=== PATIENT | male | born 1965 | race American Indian/Alaskan Native ===

== ENCOUNTER 2020-08-29 02:21 | Inpatient (IN) | payer OTHER, SELFPAY ==
[2020-08-29] MEDS ORDERED: methylPREDNISolone Sod Succinate 125 MG/2 ML INJ IV ONE (04:00)
[2020-08-29] MEDS ORDERED: ALBUTEROL 2.5 MG/3 ML NEBU IH ONE (04:00)
[2020-08-29] MEDS ORDERED: IPRATROPIUM 0.02% NEBU 2.5 ML IH ONE (04:00)
[2020-08-29] MEDS ORDERED: SODIUM CHLORIDE 0.9% 1000 ML 1,000 ML IV ONE (04:00)
[2020-08-29] MEDS ORDERED: MAGNESIUM SULFATE 2 GM/50 ML BAG IV ONE (04:00)
--- NOTE | 2020-08-29 04:07 | Emergency Department Report ---
ED Asthma HPI - General Chief Complaint: Adult Asthma Stated Complaint: ASTHMA PUI?: No Time Seen by Provider: 08/29/20 04:00 Source: patient Mode of arrival: Ambulatory Limitations: No Limitations - History of Present Illness Initial Comments: CC: wheezing, shortness of breath HPI: THis is a 53 yo male with hx of asthma and allergic rhinitis who present with shortness of breath, wheezing and cough. Symptoms began a few weeks prior. Has worsened over the past day. He does not have any asthma medication. In triage, oxygenation saturation 91. Patient was admitted to this hospital in November 2019 for acute respiratory failure due to COVID-19 pneumonia. Mr. Jeffries has had several admissions. Most recently at [facility] June for asthma. Patient has been unable to establish outpatient medical care due to lack of ins urance. He has been maintained in outpatient setting successfully in the past. However he is unable to afford medication and doctor visits [id number]. Patient denies intubation history. MD Complaint: "asthma attack", shortness of breath, wheezing -: Gradual, week(s) (3 weeks) Asthma History: history of prior ED visit, other (History of hospitalization) Severity: severe Context: ran out of meds Associated Symptoms: dry cough Treatments Prior to Arrival: other (none) - Related Data Current Asthma Therapy: none Previous Rx's Medication Instructions Recorded Last Taken Type Albuterol Mdi (or & Nicu Only) 2 puff IH Q3HRT PRN #1 inha 12/01/19 Unknown Rx [ProAir HFA Inhaler] Omeprazole Magnesium [PriLOSEC Otc] 20 mg PO QDAY #30 12/01/19 Unknown Rx Zinc Sulfate 220 mg PO QDAY #30 capsule 12/01/19 Unknown Rx dexAMETHasone [Decadron] 6 mg PO DAILY #7 tablet 12/01/19 Unknown Rx guaiFENesin/CODEINE [Robitussin AC] 7.5 ml PO Q4H PRN #180 oral.liqd 12/01/19 Unknown Rx oxyCODONE /ACETAMINOPHEN [Percocet 1 tab PO Q6H PRN #14 tablet 12/01/19 Unknown Rx 5/325 mg] Albuterol Mdi (or & Nicu Only) 2 puff IH QID PRN #8.5 gram 08/29/20 Unknown Rx [ProAir HFA Inhaler] Cetirizine HCl [Zyrtec 10mg tab] 10 mg PO DAILY 30 Days #30 tablet 08/29/20 Unknown Rx Prednisone [predniSONE 10 mg 10 mg PO .TAPER #1 tab.ds.pk 08/29/20 Unknown Rx (6-Day Pack, 21 Tabs)] Allergies Allergy/AdvReac Type Severity Reaction Status Date / Time No Known Allergies Allergy Verified 11/26/19 16:06 ED Review of Systems ROS: Stated complaint: ASTHMA Other details as noted in HPI Comment: All other systems reviewed and negative Constitutional: denies: fever, malaise Respiratory: cough, shortness of breath, wheezing Cardiovascular: denies: chest pain Gastrointestinal: denies: abdominal pain, nausea Genitourinary: denies: urgency Neurological: denies: headache ED Past Medical Hx - Past Medical History Previous Medical History?: Yes Hx Asthma: Yes Hx HIV: No - Surgical History Past Surgical History?: No Hx Pacemaker: No Hx Internal Defibrillator: No - Social History Smoking Status: Never Smoker - Medications Home Medications: Home Medications Medication Instructions Recorded Confirmed Last Taken Type Albuterol Mdi (or & Nicu Only) 2 puff IH Q3HRT PRN #1 inha 12/01/19 Unknown Rx [ProAir HFA Inhaler] Omeprazole Magnesium [PriLOSEC Otc] 20 mg PO QDAY #30 12/01/19 Unknown Rx Zinc Sulfate 220 mg PO QDAY #30 capsule 12/01/19 Unknown Rx dexAMETHasone [Decadron] 6 mg PO DAILY #7 tablet 12/01/19 Unknown Rx guaiFENesin/CODEINE [Robitussin AC] 7.5 ml PO Q4H PRN #180 oral.liqd 12/01/19 Unknown Rx oxyCODONE /ACETAMINOPHEN [Percocet 1 tab PO Q6H PRN #14 tablet 12/01/19 Unknown Rx 5/325 mg] Albuterol Mdi (or & Nicu Only) 2 puff IH QID PRN #8.5 gram 08/29/20 Unknown Rx [ProAir HFA Inhaler] Cetirizine HCl [Zyrtec 10mg tab] 10 mg PO DAILY 30 Days #30 tablet 08/29/20 Unknown Rx Prednisone [predniSONE 10 mg 10 mg PO .TAPER #1 tab.ds.pk 08/29/20 Unknown Rx (6-Day Pack, 21 Tabs)] ED Physical Exam - General Limitations: No Limitations General appearance: alert, in distress, other (Speaking 2-3 word sentences with much effort) - Head Head exam: Present: atraumatic, normocephalic - Eye Eye exam: Present: normal appearance - ENT ENT exam: Present: mucous membranes moist - Neck Neck exam: Present: normal inspection, full ROM - Respiratory Respiratory exam: Present: respiratory distress, wheezes, accessory muscle use, prolonged expiratory, other (Inspiratory expiratory wheezing, frequent coughing). Absent: rales, rhonchi, stridor - Cardiovascular Cardiovascular Exam: Present: regular rate, normal rhythm, normal heart sounds. Absent: systolic murmur, diastolic murmur, rubs, gallop - GI/Abdominal GI/Abdominal exam: Present: soft, normal bowel sounds. Absent: distended, tenderness, guarding, rebound - Rectal Rectal exam: Present: deferred - Extremities Exam Extremities exam: Present: normal inspection - Neurological Exam Neurological exam: Present: alert, oriented X3 - Psychiatric Psychiatric exam: Present: normal affect, anxious - Skin Skin exam: Present: warm, dry, intact, normal color. Absent: rash ED Course Vital Signs 08/29/20 08/29/20 08/29/20 02:34 04:06 04:10 Temperature 97.9 F Pulse Rate 96 H Pulse Rate [ 95 H Bilateral] Respiratory 20 22 Rate Respiratory 20 Rate [Bilateral ] Blood Pressure 162/99 Blood Pressure [Left] O2 Sat by Pulse 92 91 Oximetry 08/29/20 05:40 Temperature Pulse Rate 95 H Pulse Rate [ Bilateral] Respiratory 24 Rate Respiratory Rate [Bilateral ] Blood Pressure Blood Pressure 152/79 [Left] O2 Sat by Pulse 94 Oximetry - Reevaluation(s) Reevaluation #1: 08/29/20 05:02 Patient's oxygen saturation is 90% while receiving continuous nebulizer therapy. He is much more comfortable. He has expiratory wheezing. He is speaking full word sentences. ED Medical Decision Making - Lab Data Result diagrams: 08/29/20 04:32 08/29/20 04:32 - Radiology Data Radiology results: report reviewed, image reviewed AP chest 1 view my personal interpretation alveolar fullness no edema no lobar infiltrate no pneumothorax mild cardiomegaly - Medical Decision Making Acute asthma exacerbation. Patient had significant respiratory distress upon arrival. He is improving with treatment in the emergency department. However he still has work of breathing. Patient will benefit and require hospitalization. Patient is admitted to the hospital service in fair condition. CBC chemistry within normal limits, no acute process seen on chest radiograph Critical Care Time: Yes Critical care time in (mins) excluding proc time.: 40 Critical care attestation.: If time is entered above; I have spent that time in minutes in the direct care of this critically ill patient, excluding procedure time. 40 minutes of critical care time excluding procedures were used in the care of the patient. I came immediately to the bedside upon patient's arrival to treatment room. I discussed treatment plan with the nursing team members. I spoke directly with respiratory therapist to coordinate treatment. I reviewed electronic record. I was concerned for imminent airway compromise considering work of breathing upon presentation. Patient required multiple interventions and reassessments. ED Disposition Clinical Impression: Status asthmaticus, Acute respiratory failure with hypoxia Disposition: OP ADMIT IP TO THIS HOSP Is pt being admited?: Yes Does the pt Need Aspirin: No Condition: Stable
[2020-08-29 05:10] LABS: Hematocrit 44.6 % (35.5-45.6); Hemoglobin 15.2 gm/dl (11.8-15.2); Mean Corpuscular HGB Conc 34 % (32-34); Mean Corpuscular Volume 92 fl (84-94); Platelet Count 273 K/mm3 (140-440); Red Blood Count 4.85 M/mm3 (3.65-5.03); Red Cell Distribution Width 13.3 % (13.2-15.2)
[2020-08-29 05:21] LABS: BUN/Creatinine Ratio 14; Blood Urea Nitrogen 13 mg/dL (9-20); Calcium 9.2 mg/dL (8.4-10.2); Hemolysis Index 4
[2020-08-29] MEDS ORDERED: ACETAMINOPHEN 325 MG TAB PO PRN (05:26)
[2020-08-29] MEDS ORDERED: ONDANSETRON 4 MG/2 ML INJ IV PRN (05:26)
[2020-08-29] MEDS ORDERED: MORPHINE 2 MG/1 ML INJ IV PRN (05:26)
[2020-08-29] MEDS ORDERED: MAGNESIUM HYDROXIDE (MOM) ORAL LIQD UDC PO PRN (05:26)
--- NOTE | 2020-08-29 05:39 | History and Physical Report ---
History of Present Illness Date of examination: 08/29/20 Date of admission: 08/29/20 05:13 Chief complaint: Cough Shortness of breath History of present illness: [id number]-[place] male with known history of asthma and allergic rhinitis presenting to the emergency room today complaining of cough, shortness of breath and wheezing. Symptoms were said to have started few weeks ago but worsened over the past few days. Patient was admitted in this hospital sometime in November 2019 for respiratory failure due to COVID-19 pneumonia. He denies any fever or chills, no chest pain, no headache or dizziness, no diaphoresis. Patient denies being exposed to any toxic fumes, denies any recent travel, denies any sick contacts. He however indicates that he just started a new job and has been on his legs most of the time. Upon arrival in the emergency room he had oxygen saturation of about 91%. Patient has had multiple hospital admissions for asthma exacerbation and his most recent admission was at [facility] in June for asthma. He has not been able to establish with a primary care physician secondary to his insurance issues. He is therefore not on any medications at home. He has had multiple rounds of nebulizing treatments and steroids in the emergency room and he still continues to to wheeze. Work-up in the emergency room today has been unremarkable. Patient has been admitted for status asthmaticus.. Past History Past Medical History: other (Asthma) Past Surgical History: No surgical history Social history: no significant social history Medications and Allergies Allergies Allergy/AdvReac Type Severity Reaction Status Date / Time No Known Allergies Allergy Verified 11/26/19 16:06 Home Medications Medication Instructions Recorded Confirmed Last Taken Type Albuterol Mdi (or & Nicu Only) 2 puff IH Q3HRT PRN #1 inha 12/01/19 Unknown Rx [ProAir HFA Inhaler] Omeprazole Magnesium [PriLOSEC Otc] 20 mg PO QDAY #30 12/01/19 Unknown Rx Zinc Sulfate 220 mg PO QDAY #30 capsule 12/01/19 Unknown Rx dexAMETHasone [Decadron] 6 mg PO DAILY #7 tablet 12/01/19 Unknown Rx guaiFENesin/CODEINE [Robitussin AC] 7.5 ml PO Q4H PRN #180 oral.liqd 12/01/19 Unknown Rx oxyCODONE /ACETAMINOPHEN [Percocet 1 tab PO Q6H PRN #14 tablet 12/01/19 Unknown Rx 5/325 mg] Albuterol Mdi (or & Nicu Only) 2 puff IH QID PRN #8.5 gram 08/29/20 Unknown Rx [ProAir HFA Inhaler] Cetirizine HCl [Zyrtec 10mg tab] 10 mg PO DAILY 30 Days #30 tablet 08/29/20 Unknown Rx Prednisone [predniSONE 10 mg 10 mg PO .TAPER #1 tab.ds.pk 08/29/20 Unknown Rx (6-Day Pack, 21 Tabs)] Active Meds: Active Medications Acetaminophen (Acetaminophen 325 Mg Tab) 650 mg PO Q4H PRN PRN Reason: Pain MILD(1-3)/Fever >100.5/FIGUEREDO Albuterol/Ipratropium (Ipratropium/Albuterol Sulfate 3 Ml Ampul.Neb) 1 ampul IH Q6HRT ROSA Heparin Sodium (Porcine) (Heparin 5,000 Unit/1 Ml Vial) 5,000 unit SUB-Q Q8HR ROSA Magnesium Hydroxide (Magnesium Hydroxide (Mom) Oral Liqd Udc) 30 ml PO Q4H PRN PRN Reason: Constipation Methylprednisolone Sodium Succinate (Methylprednisolone Sod Succinate 40 Mg/1 Ml Inj) 40 mg IV Q8HR ROSA Morphine Sulfate (Morphine 2 Mg/1 Ml Inj) 2 mg IV Q4H PRN PRN Reason: Pain, Moderate (4-6) Ondansetron HCl (Ondansetron 4 Mg/2 Ml Inj) 4 mg IV Q8H PRN PRN Reason: Nausea And Vomiting Sodium Chloride (Sodium Chloride 0.9% 10 Ml Flush Syringe) 10 ml IV BID ROSA Sodium Chloride (Sodium Chloride 0.9% 10 Ml Flush Syringe) 10 ml IV PRN PRN PRN Reason: LINE FLUSH Review of Systems Constitutional: no fever, no chills Ears, nose, mouth and throat: no nasal congestion, no sore throat Cardiovascular: no chest pain, no palpitations Respiratory: cough, shortness of breath, wheezing Gastrointestinal: no abdominal pain, no nausea, no vomiting, no diarrhea Genitourinary Male: no dysuria, no hematuria, no flank pain, no nocturia Musculoskeletal: no neck pain, no low back pain Integumentary: no rash, no pruritis Neurological: no headaches, no confusion Psychiatric: no anxiety, no depression Endocrine: no polyphagia, no polydipsia, no polyuria, no nocturia Exam - Constitutional Vitals: Temp Pulse Resp BP Pulse Ox 97.9 F 92 H 28 H 162/99 91 08/29/20 02:34 08/29/20 04:10 08/29/20 04:10 08/29/20 02:34 08/29/20 04:06 General appearance: Present: no acute distress, well-nourished - EENT Eyes: Present: PERRL, EOM intact. Absent: scleral icterus ENT: hearing intact, clear oral mucosa, dentition normal - Neck Neck: Present: supple, normal ROM - Respiratory Respiratory effort: labored Respiratory: bilateral: wheezing - Cardiovascular Rhythm: regular Heart Sounds: Present: S1 & S2. Absent: gallop, systolic murmur, diastolic murmur, rub, click - Extremities Extremities: no ischemia, pulses intact, pulses symmetrical, normal temperature, normal color, Full ROM Extremity abnormal: edema (Trace bilateral nonpitting ankle edema) Peripheral Pulses: within normal limits - Abdominal General gastrointestinal: Present: soft, non-tender, non-distended. Absent: mass - Integumentary Integumentary: Present: clear, warm, dry. Absent: rash - Musculoskeletal Musculoskeletal: strength equal bilaterally - Psychiatric Psychiatric: appropriate mood/affect, intact judgment & insight, memory intact, cooperative - Neurologic Neurologic: CNII-XII intact, no focal deficits, moves all extremities Results - Labs CBC & Chem 7: 08/29/20 04:32 08/29/20 04:32 Labs: Abnormal lab results 08/29/20 Range/Units 04:32 Glucose 112 H (75-100) mg/dL Assessment and Plan - Patient Problems (1) Status asthmaticus Current Visit: Yes Status: Acute Plan to address problem: Patient placed on nebulizing treatments and IV steroids. Patient has not been able to follow-up with any primary care physician secondary to insurance issues. We will place consult to pulmonology for evaluation. (2) Acute respiratory failure with hypoxia Current Visit: Yes Status: Acute Plan to address problem: Secondary to the asthma exacerbation. Patient will be placed on oxygen and keep O2 saturation greater or equal to 94%. (3) DVT prophylaxis Current Visit: No Status: Acute Plan to address problem: Patient placed on subcutaneous heparin. (4) Full code status Current Visit: No Status: Acute Plan to address problem: Patient is full code.
--- NOTE | 2020-08-29 05:47 | XRay Report ---
CHEST 1 VIEW INDICATION: dyspnea asthma COMPARISON: 11/26/2019 FINDINGS: Support devices: None Heart: Normal and unchanged Lungs/Pleura: Congestive heart is unchanged and thought to be due to a large hernia. No acute pulmonary disease. No pleural fluid. IMPRESSION: 1. No significant change. Signer Name: Steven Weinstein MD Signed: 08/29/2020 5:42 AM Workstation Name: [id number]
[2020-08-29] MEDS: HEPARIN 5,000 UNIT/1 ML VIAL SUB-Q SCH ×3 (06:37→21:22)
[2020-08-29 07:09] LABS: Total Cells Counted 100
[2020-08-29 07:10] LABS: Platelet Estimate Consistent w Auto; RBC Morphology Normal
[2020-08-29] MEDS: IPRATROPIUM/ALBUTEROL SULFATE 3 ML AMPUL.NEB IH SCH ×3 (07:14→21:15)
[2020-08-29] MEDS ORDERED: ALBUTEROL 2.5 MG/3 ML NEBU IH PRN (10:16)
--- NOTE | 2020-08-29 15:09 | Event Note ---
Date: 08/29/20 Patient seen and examined, this is the second visit after midnight. 54-year-old male who does not have any PCP presented to the hospital with acute asthma exacerbation Continue current plan and management as dictated in the H&P, follow clinically If any improves clinically possible discharge tomorrow
[2020-08-29] MEDS: methylPREDNISolone Sod Succinate 40 MG/1 ML INJ IV SCH ×2 (15:38→21:22)
[2020-08-30] MEDS: IPRATROPIUM/ALBUTEROL SULFATE 3 ML AMPUL.NEB IH SCH ×4 (05:32→21:14)
[2020-08-30] MEDS: methylPREDNISolone Sod Succinate 40 MG/1 ML INJ IV SCH ×3 (06:00→21:44)
[2020-08-30] MEDS: HEPARIN 5,000 UNIT/1 ML VIAL SUB-Q SCH ×3 (06:01→21:44)
[2020-08-30 06:30] LABS: Hematocrit 42.1 % (35.5-45.6); Hemoglobin 14.4 gm/dl (11.8-15.2); Lymphocytes % (Auto) 9.5 % (13.4-35.0); Mean Corpuscular HGB Conc 34 % (32-34); Mean Corpuscular Volume 93 fl (84-94); Monocytes # (Auto) 0.5 K/mm3 (0.0-0.8); Monocytes % (Auto) 4.4 % (0.0-7.3); Platelet Count 273 K/mm3 (140-440); Red Blood Count 4.52 M/mm3 (3.65-5.03); Red Cell Distribution Width 13.4 % (13.2-15.2)
[2020-08-30 06:35] LABS: INR 1.04 (0.87-1.13)
[2020-08-30 06:50] LABS: BUN/Creatinine Ratio 13; Blood Urea Nitrogen 12 mg/dL (9-20); Calcium 9.5 mg/dL (8.4-10.2); Hemolysis Index 6
[2020-08-30] MEDS ORDERED: SINGULAIR 10 MG PO SCH (10:00)
[2020-08-30] MEDS ORDERED: amLODIPine 5 MG TAB PO SCH (10:00)
[2020-08-30] MEDS: guaiFENesin ER 600 MG TAB PO SCH ×2 (10:44→21:44)
[2020-08-30] MEDS ORDERED: ALBUTEROL 8.5 GM MDI INHALATION IH PRN (12:08)
[2020-08-30] MEDS ORDERED: guaiFENesin/CODEINE 100-10MG ORAL LIQD 5 ML PO PRN (13:00)
[2020-08-30] MEDS: amLODIPine 10 MG TAB PO SCH (15:02)
[2020-08-30] MEDS: PANTOPRAZOLE 20 MG TAB PO SCH (15:02)
--- NOTE | 2020-08-30 17:05 | Discharge Summary ---
Providers - Providers Date of Admission: 08/29/20 05:13 Date of discharge: 08/31/20 Attending physician: PHUONG DAVE Primary care physician: ANA RANDHAWA MD Hospitalization Condition: Stable Hospital course: [id number]-[place]ales[place] male with known history of asthma and allergic rhinitis presented to the emergency room complaining of cough, shortness of breath and wheezing for last few days. Patient was admitted in this hospital sometime in November 2019 for respiratory failure due to COVID-19 pneumonia. Upon arrival in the emergency room he had oxygen saturation of about 91%. He has not been able to establish with a primary care physician secondary to his insurance issues. He is therefore not on any medications at home. He had multiple rounds of nebulizing treatments and steroids in the emergency room and he still continued to wheeze. Patient was admitted to medical floor with scheduled nebs, iv steroids and supplemental O2 to keep O2 sat at 94%. CXR showed no infiltrates. Covid test was negative. Patients symptom improved with medical management. Patient was then discharged home in stable condition with outpt f/u. Disposition: TO HOME OR SELFCARE Final Discharge Diagnosis (Prints w/discharge instructions): Status asthmaticus, acute respiratory failure with hypoxia, morbid obesity, HTN, noncompliance Time spent for discharge: 34 minutes Core Measure Documentation - Palliative Care Palliative Care/ Comfort Measures: Not Applicable - Core Measures Any of the following diagnoses?: none Exam - Constitutional Vitals: Temp Pulse Resp BP Pulse Ox 98.4 F 86 18 139/80 97 08/30/20 11:48 08/30/20 15:02 08/30/20 14:25 08/30/20 15:02 08/30/20 11:48 Plan Activity: advance as tolerated Weight Bearing Status: Weight Bear as Tolerated Diet: low fat, low salt Follow up with: ANA RANDHAWA MD [Primary Care Provider] - 3-5 Days ANABELLA VICENTE MD [Staff Physician] - 7 Days JAYCEE RUELAS MD [Staff Physician] - 7 Days Prescriptions: Amlodipine Besylate [Norvasc] 10 mg PO DAILY #90 Prednisone [predniSONE 10 mg (6-Day Pack, 21 Tabs)] 10 mg PO .TAPER #1 tab.ds.pk Omeprazole Magnesium [PriLOSEC Otc] 20 mg PO QDAY #30 Albuterol Mdi (or & Nicu Only) [ProAir HFA Inhaler] 2 puff IH QID PRN #8.5 gram PRN Reason: Shortness Of Breath Singulair 10 mg PO DAILY #30 Azithromycin [Zithromax Z-ERWIN] 250 mg PO DAILY #6 tab
--- NOTE | 2020-08-30 17:37 | Event Note ---
Date: 08/30/20 Ambulatory oxygen drops to 89% and patient started to wheeze on ambulation We will hold the discharge for tonight and will reassess him tomorrow Continue current management and plan
[2020-08-30] MEDS ORDERED: MONTELUKAST 10 MG TAB PO SCH (22:00)
[2020-08-31] MEDS: IPRATROPIUM/ALBUTEROL SULFATE 3 ML AMPUL.NEB IH SCH ×3 (05:14→14:10)
[2020-08-31] MEDS: HEPARIN 5,000 UNIT/1 ML VIAL SUB-Q SCH (06:55)
[2020-08-31] MEDS: methylPREDNISolone Sod Succinate 40 MG/1 ML INJ IV SCH (06:55)
[2020-08-31] MEDS ORDERED: NON-FORMULARY EACH (Omeprazole Magnesium [Prilosec Otc] 20 MG Tablet.Dr) PO SCH (10:00)
[2020-08-31] MEDS ORDERED: DEXAMETHASONE 4 MG TAB PO SCH (10:00)
[2020-08-31] MEDS: PANTOPRAZOLE 20 MG TAB PO SCH (10:19)
[2020-08-31] MEDS: guaiFENesin ER 600 MG TAB PO SCH (10:19)
[2020-08-31 10:42] VITALS: BP 125/67
[2020-08-31] MEDS: amLODIPine 10 MG TAB PO SCH (10:42)
--- NOTE | 2020-08-31 10:42 | Progress Note ---
Assessment and Plan (1) Status asthmaticus with acute bronchitis Current Visit: Yes Status: Acute Plan to address problem: Patient placed on nebulizing treatments and IV steroids. We will also start on IV antibiotics for acute bronchitis Patient has not been able to follow-up with any primary care physician secondary to insurance issues. We will place referral to pulmonology on discharge (2) Acute respiratory failure with hypoxia Current Visit: Yes Status: Acute Plan to address problem: Secondary to the asthma exacerbation. Patient will be placed on oxygen and keep O2 saturation greater or equal to 94%. (3) DVT prophylaxis Current Visit: No Status: Acute Plan to address problem: Patient placed on subcutaneous heparin. (4) Full code status Current Visit: No Status: Acute Plan to address problem: Patient is full code. 08/30: Patient was planned for discharge today but ambulatory O2 dropped to 89%. We will continue empiric steroid schedule nebulizer breathing treatment. Will start on empiric antibiotics for acute bronchitis. Continue to monitor for now. Possible discharge in the morning if clinically stable. Subjective Date of service: 08/30/20 Interval history: Patient seen and examined. Medical records and medication list reviewed. No acute event overnight noted by the RN. Patient feeling a lot better but ambulatory O2 sat dropped to 89%. Patient is tolerating diet. Discussed plan of care at bedside with patient. Objective - Exam Narrative Exam: GENERAL: well-developed and morbidly obese -[place] male lying on bed appeared to be in no discomfort. HEENT: Normocephalic. Atraumatic. No conjunctival congestion or icterus. Patient has moist mucous membranes. NECK: Supple. Trachea midline. CHEST/LUNGS: Few wheezes auscultated bilaterally, breathing nonlabored. No wheezes crackles or rhonchi. HEART/CARDIOVASCULAR: Regular in rate and rhythm. S1 and S2 positive. ABDOMEN: Abdomen is soft, nontender. Patient has normal bowel sounds. SKIN: There is no rash. Warm and dry. NEURO: No focal motor deficit. Follows command. MUSCULOSKELETAL: No joint effusion or tenderness. EXTRIMITY: No edema, no cyanosis or clubbing. PSYCH: Cooperative. - Constitutional Vitals: Vital Signs - 12hr 08/30/20 08/31/20 08/31/20 23:04 06:27 06:55 Temperature 97.8 F 98.4 F Pulse Rate 94 H 92 H Pulse Rate [ Anterior Bilateral Throughout] Respiratory 20 24 18 Rate Respiratory Rate [Anterior Bilateral Throughout] Blood Pressure 124/73 111/72 O2 Sat by Pulse 94 90 93 Oximetry 08/31/20 08/31/20 07:55 07:57 Temperature Pulse Rate Pulse Rate [ 97 H Anterior Bilateral Throughout] Respiratory Rate Respiratory 18 Rate [Anterior Bilateral Throughout] Blood Pressure O2 Sat by Pulse 95 Oximetry - Labs CBC & Chem 7: 08/30/20 06:10 08/30/20 06:10
== END 2020-08-31 16:30 | disposition home or self-care (01) | DRG 189 ==
LOC: ED 02:21 → 3A 05:13 → OBSVTOIN 08-30 17:28
PROVIDERS: ADMIT Internal Medicine Geriatric Medicine; ATTEND Internal Medicine
DX: J96.01 Acute respiratory failure with hypoxia (principal); J45.902 Unspecified asthma with status asthmaticus; Z20.822 Contact with and (suspected) exposure to COVID-19; J20.9 Acute bronchitis, unspecified
CPT/HCPCS: 36415; 71045; 80048; 85007; 85025; 85610; 94640; 94644; 96365; G0378; J1644; J1956; J2920; J2930; J3475; J7030; U0003